=== PATIENT | female | born 1990 | race African-American/Black ===

== ENCOUNTER → 2019-11-19 | Outpatient (CLI) | payer MEDICAID | END | disposition home or self-care (01) | LOC: RAD 11:32 | PROVIDERS: ATTEND Obstetrics & Gynecology | DX: R10.9 Unspecified abdominal pain (principal) | CPT/HCPCS: 76700 ==

== ENCOUNTER 2020-01-15 21:34 | Outpatient (CLI) | payer MEDICAID ==
[~2020-01-15] VITALS: Ht 167.6 cm; Wt 149.7 kg
[2020-01-15] MEDS ORDERED: ONDANSETRON 2MG/ML, 2ML IVPush PRN (22:00)
[2020-01-15] MEDS ORDERED: LACTATED RINGERS 1,000 ML IVBOLUS ONE (22:00)
[2020-01-15] MEDS ORDERED: ONDANSETRON 2MG/ML, 2ML ONE (22:12)
[2020-01-15 22:15] LABS: MICROSCOPIC INDICATED
[2020-01-15 22:21] LABS: AMPHETAMINE SCREEN, URINE Negative (Negative); BARBITURATE SCREEN, URINE Negative (Negative); BENZODIAZEPINE SCREEN, URINE Negative (Negative); CANNABINOID SCREEN, URINE Negative (Negative); COCAINE SCREEN, URINE Negative (Negative); METHADONE SCREEN, URINE Negative (Negative); OPIATE SCREEN, URINE Negative (Negative)
[2020-01-15] MEDS ORDERED: PLEASE ENTER HEIGHT AND WEIGHT MC SCH (22:30)
[2020-01-15 22:36] VITALS: BP 118/80
[2020-01-15] MEDS ORDERED: ACETAMINOPHEN 325 MG TABLET ONE (22:55)
[2020-01-15] MEDS ORDERED: ACETAMINOPHEN 325 MG TABLET PO ONE (23:00)
== END 2020-01-15 22:10 | disposition home or self-care (01) ==
LOC: LDOP 21:34
PROVIDERS: ATTEND Obstetrics & Gynecology
DX: O21.8 Other vomiting complicating pregnancy (principal); Z3A.00 Weeks of gestation of pregnancy not specified
CPT/HCPCS: 76815; 80307; 81001; 87086; 96374; 99211; J2405; J7120; 96360; 96361; G0463

== ENCOUNTER 2020-05-10 06:28 | Inpatient (IN) | payer MEDICAID ==
[~2020-05-10] VITALS: Ht 167.6 cm; Wt 159.0 kg
[2020-05-10] MEDS ORDERED: TERBUTALINE 1 MG/ML, 1ML SQ PRN (07:00)
[2020-05-10] MEDS ORDERED: FENTANYL PF 100 MCG/2ML IVPush PRN (07:00)
[2020-05-10] MEDS ORDERED: ONDANSETRON 2MG/ML, 2ML IVPush PRN ×2 (07:00→18:30)
[2020-05-10] MEDS ORDERED: FENTANYL PF 100 MCG/2ML IV PRN ×2 (07:00→18:30)
[2020-05-10] MEDS ORDERED: CALCIUM CARBONATE 500 MG TAB.CHEW PO PRN (07:00)
[2020-05-10] MEDS ORDERED: TERBUTALINE 1 MG/ML, 1ML IVPush PRN (07:00)
[2020-05-10] MEDS ORDERED: OXYTOCIN 30U/ 0.9% NaCL 500ML 500 ML IV ONE (07:00)
[2020-05-10 07:09] VITALS: BP 126/93
[2020-05-10] MEDS ORDERED: FLUT100B INH (07:23)
[2020-05-10] MEDS ORDERED: LORA10CA PO (07:23)
[2020-05-10] MEDS ORDERED: PREN1TAB62 PO (07:23)
[2020-05-10] MEDS ORDERED: GLYB1TAB18 PO (07:24)
[2020-05-10 07:26] LABS: BASOPHILS % (AUTO) 1 % (0-1); EOSINOPHILS % (AUTO) 1 % (1-7); LYMPHOCYTES % (AUTO) 20 % (22-44); MEAN CORPUSCULAR HEMOGLOBIN 30.1 pg (27.0-34.8); MEAN CORPUSCULAR HGB CONC 33.4 g/dL (32.4-35.8); MEAN PLATELET VOLUME 9.2 fL (7.4-10.4); MONOCYTES % (AUTO) 9 % (2-9); NEUTROPHILS % (AUTO) 69 % (42-75); PLATELET COUNT 246 x10^3/uL (130-400); RED BLOOD COUNT 4.09 x10^6/uL (3.82-5.3); RED CELL DISTRIBUTION WIDTH 14.7 % (9.6-15.2)
[2020-05-10 07:37] LABS: ALANINE AMINOTRANSFERASE 15 U/L (12-78); ALBUMIN 2.4 g/dL (3.4-5.0); ANION GAP 10 mmol/L (5-15); CALCIUM 8.4 mg/dL (8.5-10.1); CHLORIDE 110 mmol/L (98-107)
[2020-05-10 07:38] LABS: MD NO
[2020-05-10 07:39] LABS: ALKALINE PHOSPHATASE 160 U/L (45-117); BILIRUBIN,TOTAL 0.2 mg/dL (0.2-1.0); TOTAL PROTEIN 6.9 g/dL (6.4-8.2)
[2020-05-10 07:41] LABS: BILIRUBIN, DIRECT < 0.1 mg/dL (0.1-0.2)
[2020-05-10] MEDS: LACTATED RINGERS 1,000 ML IV SCH ×6 (07:43→21:30)
[2020-05-10] MEDS ORDERED: OXYTOCIN 30U/ 0.9% NaCL 500ML 500 ML ONE (07:52)
[2020-05-10] MEDS ORDERED: LIDOCAINE 1%, 20ML ONE (07:52)
[2020-05-10] MEDS ORDERED: MISOPROSTOL 200 MCG TABLET ONE (07:52)
[2020-05-10] MEDS ORDERED: OXYTOCIN 30U/ 0.9% NaCL 500ML 500 ML IV PRN (08:00)
[2020-05-10] MEDS ORDERED: LACTATED RINGERS 1,000 ML IVBOLUS PRN (08:00)
[2020-05-10] MEDS ORDERED: EPHEDRINE 50 MG/ML, 1ML IVPush PRN ×2 (08:00→18:30)
[2020-05-10] MEDS ORDERED: NALOXONE 0.4 MG/ML, 1ML IVPush PRN (08:00)
[2020-05-10] MEDS ORDERED: FENTANYL/BUPIV./NS/PF 250 ML EPIDCONT SCH (08:00)
[2020-05-10 08:33] LABS: MICROSCOPIC INDICATED
[2020-05-10] MEDS ORDERED: NEWBORN KIT ONE (08:35)
[2020-05-10 08:56] LABS: AMPHETAMINE SCREEN, URINE Negative (Negative); BARBITURATE SCREEN, URINE Negative (Negative); BENZODIAZEPINE SCREEN, URINE Negative (Negative); CANNABINOID SCREEN, URINE Negative (Negative); COCAINE SCREEN, URINE Negative (Negative); METHADONE SCREEN, URINE Negative (Negative); OPIATE SCREEN, URINE Negative (Negative)
[2020-05-10] MEDS ORDERED: BUPIVACAINE 0.25% ONE (10:37)
[2020-05-10] MEDS ORDERED: FENTANYL/BUPIV./NS/PF 250 ML EPIDCONT ONE (10:37)
[2020-05-10] MEDS ORDERED: TERBUTALINE 1 MG/ML, 1ML ONE (11:56)
[2020-05-10] MEDS ORDERED: EPHEDRINE 50 MG/ML, 1ML ONE ×2 (13:56→18:19)
[2020-05-10] MEDS ORDERED: ONDANSETRON 2MG/ML, 2ML ONE ×2 (16:40→18:19)
[2020-05-10] MEDS ORDERED: METOCLOPRAMIDE 5 MG/ML, 2ML ONE (18:16)
[2020-05-10] MEDS ORDERED: SODIUM CITRATE/CITRIC ACID 15 ML UDC ONE (18:16)
[2020-05-10] MEDS ORDERED: OXYTOCIN 10 UNITS/ML, 1ML ONE (18:19)
[2020-05-10] MEDS ORDERED: PROPOFOL 10 MG/ML, 20ML ONE (18:19)
[2020-05-10] MEDS ORDERED: PHENYLEPHRINE 10 MG/ML ONE (18:19)
[2020-05-10] MEDS ORDERED: CEFAZOLIN 1,000 MG ONE ×2 (18:19→19:09)
[2020-05-10] MEDS ORDERED: SUCCINYLCHOLINE 20 MG/ML, 10ML ONE (18:19)
[2020-05-10] MEDS ORDERED: FENTANYL PF 100 MCG/2ML ONE ×2 (18:19→18:20)
[2020-05-10] MEDS ORDERED: KETOROLAC 30 MG/1 ML ONE (18:19)
[2020-05-10] MEDS ORDERED: DEXAMETHASONE 4 MG/ML, 1ML ONE (18:19)
[2020-05-10] MEDS ORDERED: HYDROcodone/APAP 7.5-325MG/15ML UDC PO PRN (18:30)
[2020-05-10] MEDS ORDERED: LACTATED RINGERS 1,000 ML IV SCH (18:30)
[2020-05-10] MEDS ORDERED: LABETALOL 5MG/ML, 20ML IV PRN (18:30)
[2020-05-10] MEDS ORDERED: HYDROmorphone 2 MG/ML, 1ML IVPush PRN (18:30)
[2020-05-10] MEDS ORDERED: AZITHROMYCIN 500 MG in SODIUM CHLORIDE 0.9% 250 ML IV ONE (18:30)
[2020-05-10] MEDS ORDERED: METHYLERGONOVINE 0.2 MG/ML IM PRN (18:30)
[2020-05-10] MEDS ORDERED: METOCLOPRAMIDE 5 MG/ML, 2ML IV ONE (18:30)
[2020-05-10] MEDS ORDERED: MEPERIDINE/PF 25MG/0.5ML IVPush PRN (18:30)
[2020-05-10] MEDS: OXYTOCIN 30U/ 0.9% NaCL 500ML 500 ML IV SCH (18:30)
[2020-05-10] MEDS ORDERED: LACTATED RINGERS 1,000 ML IVBOLUS ONE (18:30)
[2020-05-10] MEDS ORDERED: SIMETHICONE 80 MG CHEW TAB PO PRN (18:30)
[2020-05-10] MEDS ORDERED: MIDAZOLAM 1 MG/ML, 2ML IV PRN (18:30)
[2020-05-10] MEDS ORDERED: hydrALAzine 20 MG/ML, 1ML IV PRN (18:30)
[2020-05-10] MEDS ORDERED: SODIUM CITRATE/CITRIC ACID 30 ML UDC PO ONE (18:30)
[2020-05-10] MEDS ORDERED: OXYcodone 5 MG/5 ML ORAL.SOL UDC PO PRN (18:30)
[2020-05-10] MEDS ORDERED: ONDANSETRON 2MG/ML, 2ML IV PRN (18:30)
[2020-05-10] MEDS ORDERED: ALBUTEROL SULFATE 2.5 MG/3 ML NPPB PRN (18:30)
[2020-05-10] MEDS ORDERED: CARBOPROST TROMETHAMINE 250 MCG/ML, 1ML IM PRN (18:30)
[2020-05-10] MEDS ORDERED: METOPROLOL 1 MG/ML, 5ML IV PRN (18:30)
[2020-05-10] MEDS ORDERED: ACETAMINOPHEN 325 MG TABLET PO PRN (18:30)
[2020-05-10] MEDS ORDERED: MISOPROSTOL 200 MCG TABLET PR PRN (18:30)
[2020-05-10] MEDS ORDERED: morphine SULFATE 10 MG/ML, 1ML IVPush PRN ×2 (18:30)
[2020-05-10] MEDS ORDERED: PROMETHAZINE 25 MG/ML, 1ML IV PRN (18:30)
[2020-05-10] MEDS ORDERED: HYDROmorphone 2 MG/ML, 1ML ONE (19:45)
[2020-05-10 22:00] VITALS: BP 103/65
[2020-05-11] MEDS: OXYcodone/APAP 5/325MG TABLET PO PRN ×7 (00:08→23:28)
[2020-05-11 01:40] VITALS: BP 115/80
[2020-05-11 03:25] LABS: BASOPHILS % (AUTO) 1 % (0-1); EOSINOPHILS % (AUTO) 0 % (1-7); LYMPHOCYTES % (AUTO) 8 % (22-44); MEAN CORPUSCULAR HGB CONC 33.7 g/dL (32.4-35.8); MEAN PLATELET VOLUME 9.1 fL (7.4-10.4); MONOCYTES % (AUTO) 3 % (2-9); NEUTROPHILS % (AUTO) 88 % (42-75); PLATELET COUNT 203 x10^3/uL (130-400); RED BLOOD COUNT 3.88 x10^6/uL (3.82-5.3); RED CELL DISTRIBUTION WIDTH 14.6 % (9.6-15.2)
[2020-05-11 03:26] LABS: MD NO
[2020-05-11] MEDS: LACTATED RINGERS 1,000 ML IV SCH ×2 (04:30→14:30)
[2020-05-11] MEDS: OXYTOCIN 30U/ 0.9% NaCL 500ML 500 ML IV SCH ×2 (04:30→14:30)
[2020-05-11 05:00] VITALS: BP 126/81
[2020-05-11] MEDS: DOCUSATE 100 MG CAPSULE PO PRN ×2 (07:35→19:25)
[2020-05-11] MEDS: ENOXAPARIN 40 MG/0.4 ML SQ SCH (07:35)
[2020-05-11] MEDS: PRENATAL VIT/IRON/FA 1 EACH TABLET PO SCH (07:35)
[2020-05-11 07:44] VITALS: BP 123/86
[2020-05-11] MEDS: IBUPROFEN 600 MG TABLET PO PRN ×2 (10:19→23:28)
[2020-05-11 12:00] VITALS: BP 110/68
[2020-05-11 16:35] VITALS: BP 121/72
[2020-05-11 20:00] VITALS: BP 147/95
[2020-05-12] MEDS: OXYcodone/APAP 5/325MG TABLET PO PRN ×6 (03:55→22:13)
[2020-05-12] MEDS ORDERED: MEPERIDINE/PF 50 MG/ML IM PRN (07:30)
[2020-05-12] MEDS ORDERED: DIPH,PERTUSS(ACELL),TET VAC/PF NC IM-VACC PRN (07:30)
[2020-05-12] MEDS ORDERED: MEASLES,MUMPS&RUBELLA VACC/PF 0.5 ML SQ-VACC PRN (07:30)
[2020-05-12] MEDS: PRENATAL VIT/IRON/FA 1 EACH TABLET PO SCH (07:32)
[2020-05-12] MEDS: DOCUSATE 100 MG CAPSULE PO PRN ×2 (07:32→19:38)
[2020-05-12] MEDS: IBUPROFEN 600 MG TABLET PO PRN ×3 (07:32→19:38)
[2020-05-12] MEDS: ENOXAPARIN 40 MG/0.4 ML SQ SCH (07:33)
[2020-05-12 08:00] VITALS: BP 138/88
[2020-05-12] MEDS ORDERED: MEPERIDINE/PF 50 MG/ML ONE ×3 (08:16→16:39)
[2020-05-12] MEDS: MEPERIDINE/PF 25MG/0.5ML IM PRN ×2 (08:23→16:44)
[2020-05-12] MEDS ORDERED: OXYcodone/APAP 5/325MG TABLET ONE (13:31)
[2020-05-12 13:41] VITALS: BP 133/86
[2020-05-12] MEDS: ENOXAPARIN 30 MG/0.3 ML SQ SCH (19:38)
[2020-05-12 20:40] VITALS: BP 137/83
[2020-05-13] MEDS: IBUPROFEN 600 MG TABLET PO PRN ×2 (02:31→09:18)
[2020-05-13] MEDS: OXYcodone/APAP 5/325MG TABLET PO PRN ×3 (02:32→10:23)
[2020-05-13 07:45] VITALS: BP 133/85
[2020-05-13] MEDS ORDERED: MEPERIDINE/PF 50 MG/ML ONE ×2 (07:45→11:12)
[2020-05-13] MEDS: MEPERIDINE/PF 25MG/0.5ML IM PRN ×2 (07:52→11:24)
[2020-05-13] MEDS: ENOXAPARIN 30 MG/0.3 ML SQ SCH (07:53)
[2020-05-13] MEDS: PRENATAL VIT/IRON/FA 1 EACH TABLET PO SCH (07:53)
[2020-05-13] MEDS: DOCUSATE 100 MG CAPSULE PO PRN (07:53)
[2020-05-13] MEDS ORDERED: OXYC-302 PO (08:12)
[2020-05-13] MEDS ORDERED: SENN-99 PO (08:13)
[2020-05-13] MEDS ORDERED: IBUP-1222 PO (08:14)
== END 2020-05-13 11:47 | disposition home or self-care (01) | DRG 787 ==
LOC: LDIP 06:28 → 2NW 21:41
PROVIDERS: ADMIT Obstetrics & Gynecology; ATTEND Obstetrics & Gynecology
PROC: 10D00Z1 Extraction of Products of Conception, Low, Open Approach (ICD-10-PCS; principal; 2020-05-10)
PROC: 3E0R3BZ Introduction of Anesthetic Agent into Spinal Canal, Percutaneous Approach (ICD-10-PCS; 2020-05-10)
PROC: 00HU33Z Insertion of Infusion Device into Spinal Canal, Percutaneous Approach (ICD-10-PCS; 2020-05-10)
PROC: 30233S1 Transfusion of Nonautologous Globulin into Peripheral Vein, Percutaneous Approach (ICD-10-PCS; 2020-05-11)
DX: O24.429 Gestational diabetes mellitus in childbirth, unspecified control (principal); O10.92 Unspecified pre-existing hypertension complicating childbirth; Z20.828 Contact with and (suspected) exposure to other viral communicable diseases; E66.01 Morbid (severe) obesity due to excess calories; J45.909 Unspecified asthma, uncomplicated; O32.1XX0 Maternal care for breech presentation, not applicable or unspecified; O33.9 Maternal care for disproportion, unspecified; O36.63X0 Maternal care for excessive fetal growth, third trimester, not applicable or unspecified; O62.1 Secondary uterine inertia; O76 Abnormality in fetal heart rate and rhythm complicating labor and delivery; O77.0 Labor and delivery complicated by meconium in amniotic fluid; O99.214 Obesity complicating childbirth; O99.52 Diseases of the respiratory system complicating childbirth; Z37.0 Single live birth; Z3A.38 38 weeks gestation of pregnancy; Z23 Encounter for immunization; Z79.84 Long term (current) use of oral hypoglycemic drugs
CPT/HCPCS: 36415; 80053; 80307; 81001; 82248; 82570; 82962; 84156; 84550; 85025; 85461; 86592; 86762; 86850; 86900; 87340; 87635; 87806; 88305; G0378; J0456; J0690; J1100; J1170; J1650; J1885; J2175; J2405; J2704; J2790; J3010; G0475; J0330; J2370; J2590; J2765; J7050; J7120

== ENCOUNTER 2020-06-01 17:19 | Emergency (ER) | payer MEDICAID ==
[~2020-06-01] VITALS: Ht 167.6 cm; Wt 149.0 kg
[~2020-06-01 17:19] MED LIST: FLUT100B INH; GLYB1TAB18 PO; IBUP-1222 PO; LORA10CA PO; OXYC-302 PO; PREN1TAB62 PO; SENN-99 PO
--- NOTE | 2020-06-01 17:46 | NUR ---
PT IS 3 WEEKS . PT WENT TO OB LAST WEEK AND BP HIGH. PT PUT ON LABETOLOL TWICE A DAY BUT BP HAS INCREASED INSTEAD OF DECREASED ON LABETOLOL. PT STATES SHE HAS A CABEZAS, DIZZINESS, NAUSEA. PT IN BED CALM WITH CONT BP Q 30 MIN, CONT SPO2. PT HAS HER 3 WEEK OLD BABY IN ROOM. PT EDUCATED THAT THE ER IS NOT A GOOD PLACE FOR A NEW BORN BABY. PT REFUSES TO CALL FAMILY TO GET HER CHILD.
[2020-06-01 18:22] LABS: BASOPHILS % (AUTO) 1 % (0-1); EOSINOPHILS % (AUTO) 5 % (1-7); LYMPHOCYTES % (AUTO) 31 % (22-44); MEAN CORPUSCULAR HEMOGLOBIN 29.1 pg (27.0-34.8); MEAN PLATELET VOLUME 8.7 fL (7.4-10.4); MONOCYTES % (AUTO) 7 % (2-9); NEUTROPHILS % (AUTO) 57 % (42-75); PLATELET COUNT 343 x10^3/uL (130-400); RED BLOOD COUNT 4.79 x10^6/uL (3.82-5.3); RED CELL DISTRIBUTION WIDTH 14.7 % (9.6-15.2)
[2020-06-01 18:23] LABS: MD NO
[2020-06-01 18:31] LABS: ALBUMIN 3.5 g/dL (3.4-5.0); ANION GAP 3 mmol/L (5-15); CALCIUM 8.9 mg/dL (8.5-10.1); CHLORIDE 111 mmol/L (98-107)
[2020-06-01 18:35] LABS: ALANINE AMINOTRANSFERASE 34 U/L (12-78); ALKALINE PHOSPHATASE 114 U/L (45-117); BILIRUBIN,TOTAL 0.3 mg/dL (0.2-1.0); CREATININE 1.12 mg/dL (0.55-1.02); TOTAL PROTEIN 7.9 g/dL (6.4-8.2)
[2020-06-01 18:43] LABS: INTERNATIONAL NORMALIZED RATIO 1.02 (0.93-1.1); PROTHROMBIN TIME 10.8 Seconds (9.6-11.5)
[2020-06-01 18:45] LABS: MICROSCOPIC AUTO
--- NOTE | 2020-06-01 18:57 | NUR ---
REPORT RECIEVED FROM MARIN DICKERSON. PT RESTING IN BED, AWAITING RESULTS
[2020-06-01] MEDS ORDERED: ACETAMINOPHEN 500 MG TABLET ONE (19:23)
--- NOTE | 2020-06-01 19:28 | NUR ---
pt complaining of headache and blood pressure is elevated. erp notified orders placed and request for medication sent to pharmacy
[2020-06-01] MEDS ORDERED: ACETAMINOPHEN 500 MG TABLET PO ONE (19:30)
[2020-06-01 20:30] VITALS: BP 165/104
== END 2020-06-01 20:40 | disposition home or self-care (01) ==
LOC: ED 18:43
DX: O16.5 Unspecified maternal hypertension, complicating the puerperium (principal); R11.0 Nausea; R42 Dizziness and giddiness
CPT/HCPCS: 36415; 80053; 81001; 84550; 85025; 85610; 85730; 87086; 93005; 99284